=== PATIENT | male | born 1945 | race Caucasian/White ===

== ENCOUNTER 2020-10-08 11:21 | Inpatient (IN) | payer MEDICARE, OTHER ==
[2020-10-08 13:14] LABS: BASOPHIL 0.2 % (0-2); HCT 36.4 % (42.0-52.0); LYMPHOCYTE 5.7 % (15-48); MCH 34.1 pg (25.0-31.0); MCV 103.4 fL (78.0-100.0); MONOCYTE 2.4 % (0-12); MPV 10.9 fL (6.0-9.5); RBC 3.52 M/uL (4.70-6.00); RDW 24.4 % (11.5-14.0); WBC 13.9 K/uL (4.0-10.5)
[2020-10-08 13:29] LABS: INR 1.84 (0.9-1.2); PROTHROMBIN TIME 20.2 SECONDS (11.4-13.6); PTT 34.1 SECONDS (22.2-34.7)
[2020-10-08 13:45] LABS: ALBUMIN 2.2 g/dL (3.4-5.0); BUN/CREAT RATIO (CALC) 29.6 RATIO; CREATININE 1.42 mg/dL (0.67-1.17); GLOBULIN (CALCULATION) 5.2 g/dL; NEUTROPHIL 91.1 % (41-80); POTASSIUM 3.9 mmol/L (3.5-5.1); TOTAL PROTEIN 7.4 g/dL (6.4-8.2)
[2020-10-08] MEDS ORDERED: ALDACTONE25 MG PO (17:36)
[2020-10-08] MEDS ORDERED: CELEXA20 MG PO (17:36)
[2020-10-08] MEDS ORDERED: INDERAL20 MG PO (17:36)
[2020-10-08] MEDS ORDERED: LASIX40 MG PO (17:36)
[2020-10-08] MEDS ORDERED: GLUCOTROL XL5 MG PO (17:36)
[2020-10-08] MEDS ORDERED: FLOMAX0.4 MG PO (17:37)
[2020-10-08] MEDS ORDERED: PROTONIX 40MG T40 MG PO (17:37)
[2020-10-08] MEDS ORDERED: ZOCOR40 MG PO (17:37)
[2020-10-08] MEDS ORDERED: SYNTHROID75 MCG PO (17:37)
[2020-10-08] MEDS ORDERED: METFORMIN HCL500 MG PO (17:38)
[2020-10-08] MEDS ORDERED: LYRICA25 MG PO (17:38)
[2020-10-08] MEDS ORDERED: XIFAXAN550 M1 PO (17:39)
[2020-10-08] MEDS ORDERED: CULTURELLE1 EACH PO (17:39)
[2020-10-08] MEDS ORDERED: IRON18 MG PO (17:40)
[2020-10-08] MEDS ORDERED: VITAMIN D3 COM1 EACH PO (17:41)
[2020-10-08] MEDS ORDERED: ZINC50 MG PO (17:41)
[2020-10-08] MEDS ORDERED: FLONASE ALLER15.8 ML (17:42)
[2020-10-08] MEDS ORDERED: CLARITIN10 MG PO (17:42)
[2020-10-08] MEDS ORDERED: LACTULOSE10 G/15 ML PO (17:43)
[2020-10-08 19:40] LABS: BILIRUBIN NEGATIVE (NEGATIVE); BLOOD NEGATIVE Ery/uL (NEGATIVE); CLARITY CLEAR (CLEAR); COLOR YELLOW (YELLOW); GLUCOSE (U) NORMAL (NORMAL); LEUKOCYTES NEGATIVE Leu/uL (NEGATIVE); NITRITE NEGATIVE (NEGATIVE); PROTEIN NEGATIVE (NEGATIVE); UROBILINOGEN 0.2 mg/dL (0.2-1.0)
[2020-10-09 06:50] LABS: ALKALINE PHOSHATASE 85 U/L (46-116); ALT 30 U/L (16-63); AST 49 U/L (15-37); BILIRUBIN - TOTAL 1.9 mg/dL (0.2-1.0); BUN 48 mg/dL (7-18); BUN/CREAT RATIO (CALC) 33.3 RATIO; C-REACTIVE PROTEIN >18.00 mg/dL (<=0.90); CHLORIDE 108 mmol/L (98-107); CO2 (BICARBONATE) 21 mmol/L (21-32); CREATININE 1.44 mg/dL (0.67-1.17); GLOBULIN (CALCULATION) 4.6 g/dL; GLUCOSE 207 mg/dL (74-106); POTASSIUM 3.5 mmol/L (3.5-5.1); TOTAL PROTEIN 6.6 g/dL (6.4-8.2)
[2020-10-09 06:52] LABS: BASOPHIL 0.1 % (0-2); EOSINOPHIL 0 % (0-7); HGB 10.9 g/dl (13.2-18.0); LYMPHOCYTE 6.4 % (15-48); MCH 33.2 pg (25.0-31.0); MCV 100.6 fL (78.0-100.0); MONOCYTE 5.2 % (0-12); MPV 10.6 fL (6.0-9.5); NEUTROPHIL 87.2 % (41-80); NRBC 0; PLT 131 K/uL (150-400); RBC 3.28 M/uL (4.70-6.00); RDW 23.9 % (11.5-14.0); WBC 14.8 K/uL (4.0-10.5)
--- NOTE | 2020-10-09 14:16 | NUR ---
PER PATIENT'S , 5.8 LITERS WAS TAKEN OFF PATIENT
--- NOTE | 2020-10-09 17:43 | NUR ---
AT 1715 THE PATIENT HAD 3 RUNS ON TELEMTRY OF HR 120 AND ABOVE. TOOK STRIPS TO DR ROJAS, HE STATED TO GIVE AM PROPANOLOL THAT WAS HELD FOR PROCEDURE. AND TO WATCH PATIENT.
[2020-10-11 04:39] LABS: BUN/CREAT RATIO (CALC) 40.7 RATIO; CREATININE 1.08 mg/dL (0.67-1.17); POTASSIUM 3.4 mmol/L (3.5-5.1)
[2020-10-11 04:59] LABS: BASOPHIL 0.1 % (0-2); EOSINOPHIL 1.2 % (0-7); HCT 36.7 % (42.0-52.0); LYMPHOCYTE 6.4 % (15-48); MCH 32.8 pg (25.0-31.0); MCHC 32.7 g/dL (32.0-36.0); MCV 100.3 fL (78.0-100.0); MONOCYTE 6.1 % (0-12); MPV 10.1 fL (6.0-9.5); NEUTROPHIL 85.2 % (41-80); NRBC 0; PLT 117 K/uL (150-400); RBC 3.66 M/uL (4.70-6.00); RDW 23.1 % (11.5-14.0); WBC 10.4 K/uL (4.0-10.5)
--- NOTE | 2020-10-11 20:36 | NUR ---
1710 PT HAD AMIDLINE ORDERED PER DR ROJAS. PT AND SPOUSE WERE EXPLAINED THE PROCEDURE, PT WAS NOT ORIENTED TO PLACE OR TIME. NKA. LEFT ARM WAS POSITIONED TO SIDE AND WAS SCANNED WITH THE US SITE RITE MACHINE, A VEIN WAS LOCATED. THE AREA WAS CLEANSED WITH CHLORAPREP AND A #21 GAUGE GUIDE NEEDLE WAS USED TO CANULATE THE LEFT UPPER ARM WITH BLOOD RETURN THE GUIDE WIRE WAS ATTEMPTED TO THREAD THROUGH THE GUIDE NEEDLE SITHOUT SUCCESS, THIS WAS TRIED X 2 WITHOUT SUCCESS, THEN i MOVED TO THE RIGHT UPPER ARM AND THE US MACHINE WAS USED TO LOCATE THE BASILIC VEIN, A #21 GAUGE GUIDE NEEDLE WAS INSERTED INTO THE VEIN WITH A GOOD BLOOD RETURN, THE GUIDE WIRE WAS THREADED THROUGH THE GUIDE NEEDLE WITH SUCCESS. THE GUIDE NEEDLE WAS REMOVED OVER THE GUIDE WIRE LEAVING THE GUIDE WIRE IN PLACE, THEN A 20 GAUGE 10CM MIDLINE CATHETER WAS INSERTED OVER THE GUIDE WIRE AND THE WIRE WAS THEN REMOVED LEAVING THE MIDLINE CATHETER IN PLACE. THERE WAS GOOD BLOOD RETURN AND IT FLUSHED EASILY. A STERILE DRESSING WAS APPLIED OVER THE MIDLINE CATHETER. REPORT WAS GIVEN TO Manuela NAJERA ON MED/SURG. PT. TOLERATED THE PROCEDURE WELL.
[2020-10-12 08:32] LABS: BASOPHIL 0.1 % (0-2); EOSINOPHIL 1.2 % (0-7); HCT 30.9 % (42.0-52.0); HGB 12.3 g/dl (13.2-18.0); LYMPHOCYTE 11.8 % (15-48); MCH 41.4 pg (25.0-31.0); MCHC 39.8 g/dL (32.0-36.0); NEUTROPHIL 79.5 % (41-80); NRBC 0; PLT 112 K/uL (150-400); RBC 2.97 M/uL (4.70-6.00); RDW 24.3 % (11.5-14.0); WBC 8.2 K/uL (4.0-10.5)
[2020-10-12 08:43] LABS: BUN/CREAT RATIO (CALC) 39.6 RATIO; CREATININE 1.11 mg/dL (0.67-1.17); POTASSIUM 3.6 mmol/L (3.5-5.1)
[2020-10-13 05:08] LABS: BASOPHIL 0.2 % (0-2); EOSINOPHIL 2.5 % (0-7); HCT 35.5 % (42.0-52.0); HGB 11.8 g/dl (13.2-18.0); LYMPHOCYTE 11.7 % (15-48); MCH 33.6 pg (25.0-31.0); MCHC 33.2 g/dL (32.0-36.0); MCV 101.1 fL (78.0-100.0); MONOCYTE 8.3 % (0-12); MPV 10.1 fL (6.0-9.5); NEUTROPHIL 76.7 % (41-80); NRBC 0; PLT 114 K/uL (150-400); RBC 3.51 M/uL (4.70-6.00); RDW 22.9 % (11.5-14.0); WBC 10.1 K/uL (4.0-10.5)
[2020-10-13 05:27] LABS: CREATININE 1.08 mg/dL (0.67-1.17); POTASSIUM 3.4 mmol/L (3.5-5.1)
[2020-10-14 08:42] LABS: BILIRUBIN - TOTAL 2.6 mg/dL (0.2-1.0); BUN/CREAT RATIO (CALC) 34.1 RATIO; C-REACTIVE PROTEIN 8.1 mg/dL (<=0.90); CREATININE 1.23 mg/dL (0.67-1.17); GLOBULIN (CALCULATION) 5.3 g/dL; POTASSIUM 4.8 mmol/L (3.5-5.1); TOTAL PROTEIN 7.3 g/dL (6.4-8.2)
[2020-10-14 09:10] LABS: BASOPHIL 0.3 % (0-2); EOSINOPHIL 4.1 % (0-7); HGB 12.3 g/dl (13.2-18.0); LYMPHOCYTE 10.5 % (15-48); MCH 34.2 pg (25.0-31.0); MCHC 32.4 g/dL (32.0-36.0); MCV 105.6 fL (78.0-100.0); MONOCYTE 7.3 % (0-12); MPV 11.6 fL (6.0-9.5); NEUTROPHIL 76.9 % (41-80); NRBC 0; PLT 117 K/uL (150-400); RDW 23.4 % (11.5-14.0); WBC 10.8 K/uL (4.0-10.5)
[2020-10-15 07:11] LABS: ALBUMIN 1.8 g/dL (3.4-5.0); BILIRUBIN - TOTAL 2.1 mg/dL (0.2-1.0); BUN/CREAT RATIO (CALC) 37.5 RATIO; CREATININE 1.12 mg/dL (0.67-1.17); GLOBULIN (CALCULATION) 4.9 g/dL; TOTAL PROTEIN 6.7 g/dL (6.4-8.2)
[2020-10-15] MEDS ORDERED: INDERAL20 MG PO (09:17)
[2020-10-15] MEDS ORDERED: ERTAPENEM1 GM IV (09:24)
[2020-10-16 06:34] LABS: INR 1.76 (0.9-1.2); PROTHROMBIN TIME 19.5 SECONDS (11.4-13.6)
[2020-10-16 06:44] LABS: ALBUMIN 1.8 g/dL (3.4-5.0); BUN/CREAT RATIO (CALC) 34.8 RATIO; CREATININE 1.15 mg/dL (0.67-1.17); GLOBULIN (CALCULATION) 4.8 g/dL; TOTAL PROTEIN 6.6 g/dL (6.4-8.2)
[2020-10-18 04:51] LABS: ALBUMIN 1.7 g/dL (3.4-5.0); BILIRUBIN - TOTAL 1.5 mg/dL (0.2-1.0); BUN/CREAT RATIO (CALC) 29.5 RATIO; CREATININE 1.22 mg/dL (0.67-1.17); GLOBULIN (CALCULATION) 4.6 g/dL; POTASSIUM 3.9 mmol/L (3.5-5.1); TOTAL PROTEIN 6.3 g/dL (6.4-8.2)
--- NOTE | 2020-10-18 12:30 | NUR ---
WENT INTO ROOM PT AND DEBO THERE WENT OVER IM FROM [employer] VERBALIZED UNDERSTANDING. GAVE COPY TO HER AFTER SHE SIGNED IM;
--- NOTE | 2020-10-18 13:57 | NUR ---
10/18 A referral was submitted to [facility] for a possible admission on 10/15 and and again on 10/16. [facility] declined to accept patient. Other discharge options were discussed with Ms. Velazquez. She prefer home opposed to a NH for wendy and IV therapy. - Mr. Velazquez's PCP is at [facility]. A referral was made to Dr. Moeller, who in turn referred to [facility] infectious disease MD. - [facility] not [facility] with [facility] plan and requested additional cultures. Dr. Reyes has spoken to EJ Jon. Plans are for Dr. Reyes to speak with Dontrell on 10/19 and determine the IV medications. - [facility] reports plans to send the IV medication orders to [facility] on 10/19. Dariela MA case packer, has made a referral to [facility] . Please call [facility] / Rosanna at [phone] when pt is discharged. made a referral to [facility] al
[2020-10-19] MEDS ORDERED: FUROSEMIDE PO (17:01)
--- NOTE | 2020-10-19 17:37 | NUR ---
1730 NOTIFED CHRIS AT [facility] OF THE DISCHARGE FRANTZ. AT THE [phone]
== END 2020-10-19 18:15 | disposition home health service (06) | DRG 871 ==
LOC: FER 11:21 → FMS 16:55
PROVIDERS: Allergy & Immunology Allergy; Emergency Medicine; ADMIT Internal Medicine
PROC: 0W9G3ZZ Drainage of Peritoneal Cavity, Percutaneous Approach (ICD-10-PCS; 2020-10-09)
PROC: 05HY33Z Insertion of Infusion Device into Upper Vein, Percutaneous Approach (ICD-10-PCS; principal; 2020-10-11)
DX: A41.51 Sepsis due to Escherichia coli [E. coli] (principal); K65.2 Spontaneous bacterial peritonitis; R18.8 Other ascites; I13.0 Hypertensive heart and chronic kidney disease with heart failure and stage 1 through stage 4 chronic kidney disease, or unspecified chronic kidney disease; K72.90 Hepatic failure, unspecified without coma; K74.60 Unspecified cirrhosis of liver; I50.9 Heart failure, unspecified; E11.9 Type 2 diabetes mellitus without complications; G47.33 Obstructive sleep apnea (adult) (pediatric); I25.10 Atherosclerotic heart disease of native coronary artery without angina pectoris; K75.81 Nonalcoholic steatohepatitis (NASH); Z96.651 Presence of right artificial knee joint; N18.9 Chronic kidney disease, unspecified; D50.9 Iron deficiency anemia, unspecified; E03.9 Hypothyroidism, unspecified; N40.0 Benign prostatic hyperplasia without lower urinary tract symptoms; K21.9 Gastro-esophageal reflux disease without esophagitis; I25.2 Old myocardial infarction; Z95.1 Presence of aortocoronary bypass graft; Z90.49 Acquired absence of other specified parts of digestive tract
CPT/HCPCS: 36415; 36600; 70450; 71045; 80048; 80053; 81003; 82140; 82803; 82962; 83880; 83986; 84145; 84157; 84484; 85025; 85610; 85730; 86140; 87040; 87077; 87186; 92526; 93005; 97110; 97116; 97162; 97166; 97530; 97530-GP; 97535; C1751; J0696; J1335; J1642; J1940; J7060; J7070; U0002